=== PATIENT | female | born 1985 | race Caucasian/White ===

== ENCOUNTER 2020-06-09 05:37 | Inpatient (IN) | payer OTHER ==
[2020-06-05 15:31] LABS: BASOPHILS % 0.5 % (0.0-1.0); EOSINOPHILS # (AUTO) 0.2 (0.0-0.4); EOSINOPHILS % 2.6 % (0.0-6.0); HEMATOCRIT 39.4 % (34.2-44.1); HEMOGLOBIN 12.7 g/dL (12.0-16.0); MEAN CORPUSCULAR HEMOGLOBIN 27.4 pg (28-32); MEAN CORPUSCULAR HGB CONC 32.2 g/dL (31-35); MEAN CORPUSCULAR VOLUME 85.1 fL (81-99); MONOCYTES # (AUTO) 0.5 (0.2-0.8); MONOCYTES % 5.7 % (4.4-11.3); NEUTROPHILS % 56.9 % (38.7-80.0); PLATELET COUNT 250 x10e3/uL (140-360); RED BLOOD COUNT 4.63 x10e6/uL (3.6-5.1); RED CELL DISTRIBUTION WIDTH 13.2 % (11.7-14.4)
[~2020-06-09] VITALS: Ht 170.2 cm; Wt 108.9 kg
[~2020-06-09 05:37] MED LIST: STRATTERA60 MG PO; ZOLOFT100 MG PO
[2020-06-09] MEDS ORDERED: BUPIVACAINE HCL 0.5% INJ 30 ML VIAL INJ ONE (06:26)
[2020-06-09] MEDS ORDERED: BUPIVACAINE 0.25% 30ML SDV INJ ONE (06:31)
[2020-06-09] MEDS ORDERED: CEFAZOLIN SOD 1 GM/NS 50ML 100 ML IV ONE (06:47)
--- NOTE | 2020-06-09 07:15 | NUR ---
SPIRITUAL CARE - Pre-Surgery Assessment: Pt in bed. Pt's at bedside. Pt reported supportive attention from family and friends. Intervention: Store Clerk Checker provided pastoral presence, hospitality, and sympathetic listening. Acquainted pt with availability of barn boss while hospitalized. Outcome: Pt expressed appreciation for visit. No need for follow up indicated at this time. [facility] O: [phone]
[2020-06-09] MEDS ORDERED: SCOPOLAMINE 1.5 MG PATCH ONE (07:53)
[2020-06-09] MEDS ORDERED: LIDOCAINE HCL (LTA) 4 ML SOLN ONE (07:54)
[2020-06-09] MEDS ORDERED: PROMETHAZINE HCL (IM) 25 MG/ML VIAL IM ONE (09:27)
[2020-06-09] MEDS ORDERED: HYDROMORPHONE 1MG/1ML INJ ONE (09:31)
[2020-06-09] MEDS ORDERED: FENTANYL CITRATE/PF 100MCG/2 ML INJ ONE ×2 (09:36→13:36)
--- NOTE | 2020-06-09 09:48 | Operative Report ---
DATE OF PROCEDURE: 06/09/2020 SURGEON: Jett Sanchez MD PREOPERATIVE DIAGNOSES: 1. Morbid obesity. 2. BMI 40. 3. Low vitamin D. POSTOPERATIVE DIAGNOSES: 1. Morbid obesity. 2. BMI 40. 3. Low vitamin D. PREOPERATIVE INDICATION: Treat disease, prevent, complications related to comorbid conditions of obesity. PROCEDURE: Laparoscopic vertical sleeve gastrectomy. ANESTHESIA: General. DIRECTOR OF COLLECTIONS: Salvador Wolf, therapist's assistant (needed due to complexity of case). FLUID: 1400 mL crystalloid. ESTIMATED BLOOD LOSS: 20 mL. DRAINS: None. COMPLICATIONS: None. SPECIMENS: Partial stomach. GRAFTS: None. FINDINGS: 1. Normal upper GI anatomy. 2. Negative intraoperative leak test. PROCEDURE IN DETAIL: The patient was brought to the operating room and was intubated under general endotracheal anesthesia. She was positioned supine with both arms abducted. All pressure points appropriately padded. She was sterilely prepped and draped in the usual fashion. A preprocedure pause was performed identifying the patient, use of perioperative antibiotics, intended procedure, and staff surgeon. Access was gained via a 5 mm left subcostal incision using a Veress needle. The abdomen is insufflated, four additional trocars placed in standard position. Liver retractor was used to expose the stomach. I mobilized the greater curvature of stomach from about 4 cm proximal to the pyloric valve to the left kristine of the diaphragm using the [place] LigaSure device. Once that was complete, a 32-Turkish suctioning bougie was placed along the lesser curvature of the stomach. The greater curvature of stomach was resected with five firings of a 60 mm purple load Lightwiretronic stapling device. Once that was complete, we submerged the sleeve under saline and the leak test, no leaks were identified. The specimen was removed through the right periumbilical port site. The port site was closed with 0 Vicryl suture using a Vincenzo Hightower technique. We then verified hemostasis and placed hemoclips on the staple line where there were necessary. We then desufflated the abdomen, removed the trocars. Incision sites were closed with 4-0 Monocryl suture in a subcuticular fashion. Dermabond dressings were applied. A 0.25% bupivacaine was used both at the preperitoneal incision sites. The patient tolerated the procedure well. Type of wound was type 2, clean, contaminated. All surgical sponge and instrument counts were correct. MD VIRAJ Miranda/CHAPINCITOL /[id number]
[2020-06-09] MEDS ORDERED: ONDANSETRON HCL INJ 2MG/ML 2ML 2 MG/ML VIAL ONE ×2 (10:12→13:10)
--- OUTSIDE RECORDS SUMMARY | 2020-06-09 10:12 | XMS REPORT | Clinical Summary ---
Author Author [facility] Address Unknown Phone Unavailable Care Team Providers Care Art Installer Name Role Phone Mamadou Oneil DO PCP Allergies No Known Allergies Medications No known medications Active Problems Not on file Social History Date Tobacco Use Types Packs/Day Years Used Current Every Day Smoker Smokeless Tobacco: Never Used Drinks/Week oz/Week Comments Alcohol Use No Alcohol Habits Answer Date Recorded How often do you have a drink containing alcohol? Never 12/23/2018 How many drinks containing alcohol do you have on No t asked a typical day when you are drinking? How often do you have six or more drinks on one Not asked occasion? Sex Assigned at Date Recorded Not on file Industry Job Start Date Occupation Not on file Not on file Not on file Travel End Travel History Travel Start No recent travel history available. 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
--- OUTSIDE RECORDS SUMMARY | 2020-06-09 10:12 | XMS REPORT | Continuity of Care Document ---
Author Author [facility] Organization [facility] Address [address] [place] [address] Phone Unavailable Care Team Providers Care Citizenship Teacher Name Role Phone Thad Fitz PCP Problems This patient has no known problems. Allergies, Adverse Reactions, Alerts This patient has no known allergies or adverse reactions. Social History Social Habit Start Date Stop Date Quantity Comments Source History SDOH Alcohol Std Drinks [place] [facility] History SDOH Alcohol Binge [place] [facility] Sex Assigned At [facility] Alcohol intake 2018-12-23 00:00:00 2018-12-23 00:00:00 Current non-drinker of alcohol (finding) [place] [facility] History SDOH Alcohol Frequency 2018-12-23 00:00:00 2018[facility]12[facility]23 [facility] Start Date Stop Date Source Current every day [facility] Medications This patient has no known medications. Procedures This patient has no known procedures. Plan of Care Planned Activity Planned Date Details Comments Source Future Scheduled Test 2020-06-26 00:00:00 INFLUENZA VACCINE [code = INFLUENZA VACCINE] [facility] Future Scheduled Test 2004 00:00:00 Screening for liane gnant neoplasm of cervix (procedure) [code = 706561307] [facility] Results This patient has no known results.
[2020-06-09 10:40] LABS: BASOPHILS % 0.3 % (0.0-1.0); EOSINOPHILS # (AUTO) 0.1 (0.0-0.4); EOSINOPHILS % 0.7 % (0.0-6.0); HEMATOCRIT 37.1 % (34.2-44.1); HEMOGLOBIN 11.9 g/dL (12.0-16.0); LYMPHOCYTES # (AUTO) 1.3 (1.0-3.2); LYMPHOCYTES % 11.8 % (18.0-39.1); MEAN CORPUSCULAR HEMOGLOBIN 27.2 pg (28-32); MEAN CORPUSCULAR HGB CONC 32.1 g/dL (31-35); MEAN CORPUSCULAR VOLUME 84.9 fL (81-99); MONOCYTES # (AUTO) 0.2 (0.2-0.8); MONOCYTES % 2.1 % (4.4-11.3); NEUTROPHILS # (AUTO) 9.4 (2.1-6.9); NEUTROPHILS % 84.6 % (38.7-80.0); PLATELET COUNT 204 x10e3/uL (140-360); RED BLOOD COUNT 4.37 x10e6/uL (3.6-5.1); RED CELL DISTRIBUTION WIDTH 13.1 % (11.7-14.4)
--- NOTE | 2020-06-09 12:15 | NUR ---
RCD PT FROM PACU BY BED PT IS ALERT AND ORIENTED VITALS CHECKED PT RESTING ON BED ADMISSION ASSESSMENT DONE 5 TROCARS ON ABDOMEN ITS INTACT ,IV PATENT BY SALINE FLUSH,ADMISSION HISTORY AND FAMILY HISTORY DONE INSTRUCTED PT REGARDING HOSPITAL POLICY AND VISITOR POLICY BED LOW AND LOCKED CALL LIGHT IN REACH
[2020-06-09 12:31] VITALS: BP 119/77
[2020-06-09] MEDS ORDERED: ROCURONIUM BROMIDE 10 MG/ML 5ML VIAL IV ONE (13:10)
[2020-06-09] MEDS ORDERED: PROPOFOL IV EMULSION 10 MG/ML 20 ML VIAL ONE (13:10)
[2020-06-09] MEDS ORDERED: SEVOFLURANE INHAL SOLN 250 ML PEN BTL ONE (13:10)
[2020-06-09] MEDS ORDERED: GLYCOPYRROLATE INJ 0.2 MG/ML VIAL ONE (13:10)
[2020-06-09] MEDS ORDERED: NEOSTIGMINE 1 MG/ML 10ML VIAL ONE (13:10)
[2020-06-09] MEDS ORDERED: LIDOCAINE HCL 2% LOCAL INJ 5 ML SDV VIAL INJ ONE (13:10)
[2020-06-09] MEDS ORDERED: DEXAMETHASONE SOD PHOS INJ 4 MG/ML VIAL ONE (13:10)
[2020-06-09] MEDS ORDERED: KETOROLAC TROMETHAMINE 30 MG/ML VIAL ONE (13:10)
[2020-06-09] MEDS ORDERED: LIDOCAINE HCL 2% JELLY 5 ML TUBE ONE (13:10)
[2020-06-09 13:22] VITALS: BP 119/77
[2020-06-09 13:23] VITALS: BP 119/72
[2020-06-09] MEDS ORDERED: MIDAZOLAM HCL 2 MG/2 ML VIAL ONE (13:36)
[2020-06-09] MEDS: LACTATED RINGER'S 1,000 ML IV SCH ×2 (13:45→21:45)
[2020-06-09] MEDS: MORPHINE SULFATE 2 MG/ML SYR 1ML IV PRN ×5 (14:02→23:31)
[2020-06-09] MEDS ORDERED: SCOPOLAMINE 1.5 MG PATCH TOP SCH (14:15)
[2020-06-09] MEDS ORDERED: INFLUENZA VIRUS VAC SPLIT INJ 0.5 ML SYR IM ONE (14:45)
--- NOTE | 2020-06-09 14:45 | History and Physical ---
CHIEF COMPLAINT: "I had weight loss surgery." HISTORY OF PRESENT ILLNESS: This is a 34-year-old white woman, who was initially admitted to [facility] with diagnosis of obesity, BMI 37. Today, the patient underwent successful laparoscopic vertical sleeve gastrectomy. The surgery was performed by Dr. Jett Sanchez, which the patient tolerated quite well. During the surgery, she was found to have a negative intraoperative leak test. The patient states at this time she has slight abdominal pain. Otherwise, she is doing well. The patient denies any belching. She also denies any flatus. The patient states she has been urinating freely without difficulty since the surgery. Blood work done today revealed a white blood cell count 11,000 with 84% segmented neutrophils. The patient's hemoglobin is 11.9 g/dL. The patient underwent a COVID-19 test on June 05, 2020, which was negative. REVIEW OF SYSTEMS: GENERAL: Weight has been stable. No fever or chills. HEENT: No headaches. No visual changes. CARDIOVASCULAR/RESPIRATORY: No chest pain. No shortness of breath. No chronic cough. GI: Slight abdominal pain at the incision site. No nausea or vomiting. No diarrhea. : Enamorado catheter has been removed and she is urinating freely. NEUROMUSCULAR: Denies any limb weakness or numbness. ALLERGIES: NO KNOWN DRUG ALLERGIES. MEDICATIONS: 1. Atomoxetine 60 mg at bedtime. 2. Sertraline 100 mg b.i.d. PAST SURGICAL HISTORY: 1. Laparoscopic vertical sleeve gastrectomy today. 2. Right ACL repair. 3. Bilateral foot surgery. PAST MEDICAL HISTORY: 1. Depression. 2. Vitamin D deficiency. 3. Tobacco use. 4. Obesity, BMI 37. FAMILY HISTORY: Mother has coronary artery disease and has undergone multiple coronary artery stent placement. The patient states her mom was 56 when she underwent her first coronary artery stent placement. DISPOSITION CLERK HISTORY: The patient denies any history of gestational diabetes or preeclampsia. SOCIAL HISTORY: This patient is , lives with . She is employed as a preschool paraprofessional. She does smoke tobacco. The patient states she rarely drinks alcohol. PHYSICAL EXAMINATION: GENERAL: She is awake, alert, and fully oriented. She is very pleasant and cooperative on exam. VITAL SIGNS: Height 5 feet 7 inches, weight 240 pounds, BMI 37. Blood pressure is 118/78, pulse 60, respiratory rate is 18, temperature 97.5, and oxygen saturation is 100% on room air. INTEGUMENT: Skin is warm and dry. No pallor. HEENT: Mucous membranes dry. The patient has slight pallor in her perioral area. NECK: Supple. CARDIOVASCULAR: Regular rate and rhythm. LUNGS: No rales. No rhonchi. No wheezes. ABDOMEN: Benign. No bowel sounds auscultated. Laparoscopic incisions are dressed. EXTREMITIES: No edema or deformity. The patient's bilateral lower legs have sequential compression devices in place. NEUROLOGICAL: Intact. DIAGNOSES: 1. Status post laparoscopic vertical sleeve gastrectomy. 2. Obesity, BMI 37. 3. Tobacco use. 4. Depression. 5. Vitamin D deficiency. PLAN: 1. We will follow hemoglobin and hematocrit since the patient appears to be slightly pale. 2. Follow renal function and electrolytes. 3. Resume psychotropic medications, namely antidepressants. 4. Highly recommend tobacco cessation. 5. Continue intravenous fluids. 6. We will administer influenza vaccine today upon the patient's agreement. I would like to thank, Dr. Sanchez, for involving me in the care of this patient. I spent 45 minutes in the care of this patient. MD ANDRES Malik/JOVAN /[id number] MTDD
[2020-06-09] MEDS: HYDROCODONE/APAP 7.5MG-325MG 1 EA TAB PO PRN (15:34)
[2020-06-09 15:45] VITALS: BP 126/89
[2020-06-09] MEDS: ONDANSETRON HCL INJ 2MG/ML 2ML 2 MG/ML VIAL IV PRN ×2 (16:00→22:20)
[2020-06-09] MEDS: SERTRALINE HCL 100 MG TAB PO SCH (16:25)
--- NOTE | 2020-06-09 17:30 | NUR ---
PATIENT AMBULATED WITH ASSISTANCE
[2020-06-09 17:31] LABS: HEMATOCRIT 37.6 % (34.2-44.1); HEMOGLOBIN 11.9 g/dL (12.0-16.0)
--- NOTE | 2020-06-09 18:41 | NUR ---
PT RESTING ON BED BED SIDE REPORT GIVEN TO ONCOMING NURSE
[2020-06-09 19:15] VITALS: BP 128/68
--- NOTE | 2020-06-09 19:35 | NUR ---
BEDSIDE SHIFT REPORT RECEIVED FROM DAY RN. PT IS A&O X3. RESPIRATIONS ARE EVEN AND UNLABORED. PT AMBULATING IN GREGORY. TROCHAR SITE DRY AND INTACT. PT VOIDING WITHOUT DIFFICULTY. PT TAKING ICE CHIPS ONLY ORDERED. CALL LIGHT WITHIN REACH. BED IN LOW POSITION.
[2020-06-09 20:00] VITALS: BP 128/68
[2020-06-09] MEDS ORDERED: ATOMOXETINE HCL 60 MG PO SCH (21:00)
[2020-06-09] MEDS: ENOXAPARIN SOD INJ 40 MG/0.4 ML SYR SC SCH (21:04)
[2020-06-10 01:30] VITALS: BP 105/90
[2020-06-10] MEDS: MORPHINE SULFATE 2 MG/ML SYR 1ML IV PRN ×2 (03:57→08:46)
[2020-06-10] MEDS: ONDANSETRON HCL INJ 2MG/ML 2ML 2 MG/ML VIAL IV PRN (05:14)
[2020-06-10 05:21] LABS: BASOPHILS % 0.2 % (0.0-1.0); EOSINOPHILS # (AUTO) 0.1 (0.0-0.4); EOSINOPHILS % 0.8 % (0.0-6.0); HEMATOCRIT 35.4 % (34.2-44.1); HEMOGLOBIN 11.3 g/dL (12.0-16.0); LYMPHOCYTES # (AUTO) 2.2 (1.0-3.2); LYMPHOCYTES % 24.2 % (18.0-39.1); MEAN CORPUSCULAR HEMOGLOBIN 27.1 pg (28-32); MEAN CORPUSCULAR HGB CONC 31.9 g/dL (31-35); MEAN CORPUSCULAR VOLUME 84.9 fL (81-99); MONOCYTES # (AUTO) 0.7 (0.2-0.8); NEUTROPHILS # (AUTO) 6.2 (2.1-6.9); NEUTROPHILS % 67.4 % (38.7-80.0); PLATELET COUNT 225 x10e3/uL (140-360); RED BLOOD COUNT 4.17 x10e6/uL (3.6-5.1); RED CELL DISTRIBUTION WIDTH 13.2 % (11.7-14.4)
[2020-06-10] MEDS: LACTATED RINGER'S 1,000 ML IV SCH (05:25)
[2020-06-10 05:42] LABS: ALANINE AMINOTRANSFERASE 31 IU/L (0-55); ALBUMIN 3.7 g/dL (3.5-5.0); ALBUMIN/GLOBULIN RATIO 1.4 (0.8-2.0); ALKALINE PHOSPHATASE 132 IU/L (40-150); ANION GAP 13.2 mmol/L (8-16); BLOOD UREA NITROGEN 7 mg/dL (7-26); BUN/CREATININE RATIO 10 (6-25); CALCIUM 8.1 mg/dL (8.4-10.2); CARBON DIOXIDE 26 mmol/L (22-29); CHLORIDE 103 mmol/L (98-107); CREATININE, SERUM 0.69 mg/dL (0.57-1.11); EST GLOMERULAR FILTRATION RATE > 60 ML/MIN (60-); GLUCOSE 92 mg/dL (74-118); MAGNESIUM 1.7 MG/DL (1.3-2.1); PHOSPHORUS 2.7 MG/DL (2.3-4.7); POTASSIUM 4.2 mmol/L (3.5-5.1); SODIUM 138 mmol/L (136-145)
[2020-06-10 06:21] VITALS: BP 128/87
[2020-06-10 07:58] VITALS: BP 133/81
[2020-06-10] MEDS: SERTRALINE HCL 100 MG TAB PO SCH (08:46)
[2020-06-10] MEDS: ENOXAPARIN SOD INJ 40 MG/0.4 ML SYR SC SCH (08:46)
[2020-06-10] MEDS: HYDROCODONE/APAP 7.5MG-325MG 1 EA TAB PO PRN (08:47)
--- NOTE | 2020-06-10 09:04 | NUR ---
Progress Note S: No major c/o O: AF,VSS Labs reviewed- wnl General- no acute distress Abd- soft, incisions c/d/i A/P: POD 1, s/p Lap sleeve gastrectomy -clears, ambulate, IS, OOB to chair -DC home per Dr. Gomez -f/u with me in 1-2 weeks
[2020-06-10] MEDS ORDERED: TYLENOL # 31 EA (10:22)
[2020-06-10] MEDS ORDERED: ZOFRAN4 MG PO (10:23)
--- NOTE | 2020-06-10 10:30 | Discharge Summary ---
ADMIT DIAGNOSES: 1. Obesity, BMI 37. 2. Depression. 3. Vitamin D deficiency. DISCHARGE DIAGNOSES: 1. Status post laparoscopic vertical sleeve gastrectomy. 2. Obesity, BMI 37. 3. Tobacco abuse. 4. Depression. 5. Vitamin D deficiency. HOSPITAL COURSE: This is 34-year-old white woman, who was initially admitted to [facility] with diagnosis of obesity, BMI 37. On June 09, 2020, the patient underwent laparoscopic vertical sleeve gastrectomy, which she tolerated quite well. On day of discharge, the patient's complete blood count was normal except hemoglobin was 11.3 g/dL. The patient's comprehensive metabolic profile was also normal. She was tolerating a clear liquid diet on discharge. She was not experiencing any belching, though prior to discharge. CONDITION ON DISCHARGE: Stable. DISCHARGE MEDICATIONS: 1. Acetaminophen with codeine 300 mg/30 mg one tablet every 4 hours p.r.n. pain, 30 prescribed, no refills. 2. Ondansetron 4 mg one pill every 6 hours p.r.n. nausea, and vomiting, 20 prescribed, no refills. 3. Atomoxetine 60 mg at bedtime. 4. Sertraline 100 mg b.i.d.. FOLLOWUP INSTRUCTIONS: The patient instructed to follow up with Dr. Jett Sanchez in one week and with her primary care physician in 2 weeks. I did inform the patient that she may need to be off work for a total two weeks. MD ANDRES Malik/JOVAN /[id number] cc: Jett Sanchez MD
--- NOTE | 2020-06-10 11:18 | NUR ---
Nutrition Screen Note RD Recommendation for Physician: - Advance to full liquids per MD Plan of Care: RD following, monitoring for tolerance and adequacy - Diet education provided 06/10 Nutrition reason for involvement: MD Consult- post gastric sleeve diet education Primary Diagnose(s): gastric sleeve surgery PMH: obesity, vitamin D deficiency, depression Ht: 67 in Wt: 240 lb BMI: 37.6 kg/m2 IBW: [address] Assessment: (06/10) 34 YOF admitted for gastric sleeve surgery, pt seen today today for post op diet education. Pt reports that she was seen by a RD for diet education and is familiar with the post op diet, protein supplements, and vitamin/mineral rec's. Pt states that she has protein supplements, MVI, vitamin D, vitamin B12, and other vitamins at home per Dr. Mancuso's recommendations. Reviewed diet progression with pt, reviewed recommendations, and answered all questions and concerns at time of visit. Pt provided with diet education materials. Chart reviewed. Labs and meds reviewed. Current Diet: bariatric CLD Malnutrition Evaluation (06/10/20) The patient does not meet criteria for a specified degree of malnutrition at this time. Will re-evaluate at follow-up as appropriate. Diet Education Needs Assessment: Diet education indicated, pt receptive and education provided 06/10. Learner(s): pt Barriers: none Cultural/Language Modifications: none Readiness: ready Method: handout, discussion Topics: post op gastric bypass diet progression Understanding/Compliance: good Diet tolerance: tolerating CLD Nutrition Care Level: low Signed: Cristina Gould RD, LD, [facility]
== END 2020-06-10 11:18 | disposition home or self-care (01) | DRG 621 ==
LOC: OR 05:37 → PACU V 10:05 → MED/SURG 12:28
PROVIDERS: ADMIT Internal Medicine; ATTEND Internal Medicine
PROC: 0DB64Z3 Excision of Stomach, Percutaneous Endoscopic Approach, Vertical (ICD-10-PCS; principal; 2020-06-09 08:00)
DX: E66.01 Morbid (severe) obesity due to excess calories (principal); Z68.41 Body mass index [BMI] 40.0-44.9, adult; E55.9 Vitamin D deficiency, unspecified; F17.210 Nicotine dependence, cigarettes, uncomplicated; F32.9 Major depressive disorder, single episode, unspecified; Z11.59 Encounter for screening for other viral diseases
CPT/HCPCS: 36415; 80053; 81025; 83735; 84100; 85014; 85018; 85025; J0690; J1100; J1170; J1650; J1885; J2001; J2250; J2270; J2405; J2550; J2710; J3010; J7121; U0002